=== PATIENT | female | born 1975 | race Caucasian/White ===

== ENCOUNTER 2016-12-19 15:54 | Emergency (ER) | payer OTHER ==
[2016-12-19 16:00] VITALS: RESP 16
[2016-12-19] MEDS ORDERED: ACETAMINOPHEN 325 MG TAB PO ONE (16:46)
--- NOTE | 2016-12-19 16:49 | EDPHY ---
HPI/HX/ROS/PE/MDM Narrative: CHIEF COMPLAINT: Head injury last night. HPI: This patient is a 41 year old female complaining of severe headache secondary to an accidental injury yesterday evening. She was working in her garage with a shelf, and a pot full of dirt fell from the shelf and struck her on her upper right forehead area. She is fairly certain she did not lose consciousness, and remembers the entire incident. She was able to fall asleep, but woke up around 4 :00am and vomited. She went back to sleep follow this. Today, she continues to have severe head pain. She endorses mild neck pain and states her vision feels "a little crooked". She is photophobic. No fever, shortness of breath, chest pain, or other associated symptoms. REVIEW OF SYSTEMS: Aside from elements discussed in the HPI, a comprehensive 10-point review of systems was reviewed and is negative. PMH: Denies. SOCIAL HISTORY: Mother at bedside. Works as medical laboratory scientist. Lives in [place]. . PHYSICAL EXAM: General:Patient is alert, in no acute distress. Head: Tenderness and swelling to right upper forehead area. ENT:Eyes are normal to inspection. ENT inspection normal. Neck: Normal inspection. Full range of motion. Respiratory:No respiratory distress. Breath sounds normal bilaterally. Cardiovascular: Regular rate and rhythm. Strong peripheral pulses. Normal cap refill. Abdomen:The abdomen is nontender to palpation. There are no peritoneal signs. There are normal bowel sounds. Back: Normal to inspection. No tenderness to palpation. Skin: Normal color. No rash. Warm and dry. Extremities: Normal appearance. Full range of motion. Neuro: Oriented x3. Normal motor function. Normal sensory function. Portions of this note were transcribed by an ED scribe. I personally performed the history, physical exam, and medical decision making; and confirm the accuracy of the information in the transcribed note. ED Course: Plan for CT head without contrast to evaluate for acute processes. CT head is negative for facial fracture or intracranial bleed. MDM: This patient presents with head injury that occurred last night. Given her photophobia and level of pain, we performed a CTH to rule out fracture or intracranial bleed. Thankfully, this study is negative. The patient has a normal neuro exam. I reassured her and offered pain medication. We discussed strict return precautions. She is comfortable with the plan to be discharged home. - Data Points Imaging Results: Imaging Impressions Head CT 12/19/16 17:03 Impression: Normal noncontrast CT of the brain. Results called to Dr. Jorge Reis at 7:00 PM at the time of the interpretation. Imaging: Discussed imaging studies w/ test development engineer Radiologist Medications Given: Discontinued Medications Acetaminophen (Tylenol) 650 mg PO EDNOW ONE Stop: 12/19/16 16:47 Last Admin: 12/19/16 16:49 Dose: 650 mg Ondansetron HCl (Zofran Odt) 4 mg PO EDNOW ONE Stop: 12/19/16 17:03 Last Admin: 12/19/16 17:36 Dose: 4 mg Oxycodone/Acetaminophen (Percocet 5/325) 1 tab PO EDNOW ONE Stop: 12/19/16 17:03 Last Admin: 12/19/16 17:36 Dose: 1 tab General Time Seen by Provider: 12/19/16 16:46 Initial Vital Signs: Initial Vital Signs Temperature (C) 36.7 C 12/19/16 15:56 Heart Rate 75 12/19/16 15:56 Respiratory Rate 16 12/19/16 15:56 Blood Pressure 139/101 H 12/19/16 15:56 O2 Sat (%) 98 12/19/16 15:56 O2 Delivery Mode Room Air Allergies/Adverse Reactions: No Known Allergies Allergy (Verified 12/19/16 16:01) Home Medications: Medication Instructions Recorded Ondansetron Odt [Zofran Odt] 4 mg PO Q4PRN PRN #10 tab 12/19/16 oxyCODONE/APAP 5/325 [Percocet 1 - 2 tab PO Q4H PRN #7 tab 12/19/16 5/325 (*)] oxyCODONE/APAP 5/325 [Percocet 1 tab PO 12/19/16 5/325 (*)] Departure - Departure Disposition: Home, Routine, Self-Care Clinical Impression: Concussion Condition: Good Instructions: Concussion (ED) Additional Instructions: Follow-up with your primary doctor within 72 hours. Return to the Emergency Department for severe headache, vomiting, vision changes, confusion, fever or other concerns. Referrals: Yaritza Ruffin MD [Primary Care Provider] - As per Instructions Stand Alone Forms: Work Excuse Prescriptions: Ondansetron Odt [Zofran Odt] 4 mg PO Q4PRN PRN #10 tab PRN Reason: Nausea oxyCODONE/APAP 5/325 [Percocet 5/325 (*)] 1 - 2 tab PO Q4H PRN #7 tab PRN Reason: Pain, Severe Report Scribed for: Jorge Reis Report Scribed by: Shanna Mancera Date of Report: 12/19/16 Time of Report: 16:48
[2016-12-19] MEDS ORDERED: ONDANSETRON DISINTEGRATING 4 MG TAB PO ONE (17:02)
[2016-12-19] MEDS ORDERED: OXYCODONE/APAP 5/325 TAB PO ONE (17:02)
[2016-12-19 19:16] VITALS: BP 113/88; PULSE 72; TEMP 98.6; O2SAT 94
== END 2016-12-19 19:15 | disposition home or self-care (01) ==
DX: S06.0X0A Concussion without loss of consciousness, initial encounter (principal); W18.00XA Striking against unspecified object with subsequent fall, initial encounter

== ENCOUNTER → 2017-04-16 | Outpatient (CLI) | payer OTHER | LOC: BMCIMAGING 10:35 | PROVIDERS: ATTEND Physician Assistant | DX: N63.20 Unspecified lump in the left breast, unspecified quadrant (principal) | CPT/HCPCS: G0204 ==

== ENCOUNTER → 2018-08-28 | Outpatient (CLI) | payer MEDICAID | LOC: BMCIMAGING 11:24 | PROVIDERS: ATTEND Family Medicine | DX: M25.511 Pain in right shoulder (principal) ==